=== PATIENT | female | born 1985 | race Hispanic/Latino ===

== ENCOUNTER 2022-04-28 00:23 | Emergency (ER) | payer OTHER ==
[~2022-04-28] VITALS: Ht 157.5 cm; Wt 97.5 kg
[2022-04-28 00:41] LABS: APPEARANCE,URINE Clear (CLEAR); BILIRUBIN,URINE Negative (NEGATIVE); COLOR,URINE Yellow (YELLOW); GLUCOSE, URINE (UA) Negative (NEGATIVE); KETONES,URINE Trace mg/dL (NEGATIVE); LEUKOCYTE ESTERASE ,URINE Trace (NEGATIVE); NITRATE,URINE Negative (NEGATIVE); OCCULT BLOOD,URINE Large (NEGATIVE); PROTEIN,URINE Negative (NEGATIVE)
[2022-04-28 00:45] LABS: HCG,QUAL RESULT POSITIVE (NEGATIVE)
[2022-04-28 00:50] LABS: BACTERIA,URINE Rare /HPF (None Seen); MUCUS,URINE Few LPF (None Seen); SQUAMOUS EPITHELIAL CELL,UR Few /HPF (0-2)
[2022-04-28 01:16] LABS: BASOPHILS % (AUTO) 0.2 % (0.0-5.0); EOSINOPHILS % (AUTO) 1.4 % (0.0-8.0); HEMATOCRIT 35.9 % (36-48); LYMPHOCYTES % (AUTO) 29.4 % (21.0-51.0); MEAN CORPUSCULAR HEMOGLOBIN 26.8 pg (27.0-33.0); MEAN CORPUSCULAR HGB CONC 32.9 g/dL (32.0-36.0); MEAN CORPUSCULAR VOLUME 81.6 fL (79-99); MONOCYTES % (AUTO) 6.6 % (3.0-13.0); PLATELET COUNT (AUTO) 268 K/uL (130-400); RED CELL DISTRIBUTION WIDTH 13.7 % (11.0-15.5); WHITE BLOOD COUNT (AUTO) 8.4 K/uL (4.8-10.8)
[2022-04-28 01:25] LABS: CREATININE 0.6 mg/dL (0.5-1.5); POTASSIUM 3.5 mmol/L (3.5-5.1)
[2022-04-28 01:51] LABS: ALBUMIN 3.3 g/dL (3.5-5.0); BILIRUBIN,TOTAL 0.2 mg/dL (0.2-1.0); TOTAL PROTEIN, SERUM 7.1 g/dL (6.0-8.3)
[2022-04-28 04:40] VITALS: BP 125/62
== END 2022-04-28 04:50 | disposition home or self-care (01) ==
LOC: EDH 00:23
DX: O20.0 Threatened abortion (principal); Z90.49 Acquired absence of other specified parts of digestive tract; Z3A.01 Less than 8 weeks gestation of pregnancy
CPT/HCPCS: 36415; 76801; 80053; 81001; 81025; 84702; 85025; 86850; 86900; 86901

== ENCOUNTER 2022-04-29 22:17 | Emergency (ER) | payer OTHER ==
[~2022-04-29] VITALS: Ht 157.5 cm; Wt 96.6 kg
[2022-04-29 22:56] LABS: BASOPHILS % (AUTO) 0.3 % (0.0-5.0); EOSINOPHILS % (AUTO) 1.5 % (0.0-8.0); HEMATOCRIT 37.2 % (36-48); LYMPHOCYTES % (AUTO) 25.3 % (21.0-51.0); MEAN CORPUSCULAR HEMOGLOBIN 26.6 pg (27.0-33.0); MEAN CORPUSCULAR HGB CONC 32.5 g/dL (32.0-36.0); MEAN CORPUSCULAR VOLUME 81.8 fL (79-99); MONOCYTES % (AUTO) 5.5 % (3.0-13.0); NEUTROPHILS % (AUTO) 67.1 % (40.0-77.0); PLATELET COUNT (AUTO) 269 K/uL (130-400); RED BLOOD CELL COUNT(AUTO) 4.55 MIL/uL (4.00-5.50); WHITE BLOOD COUNT (AUTO) 8.8 K/uL (4.8-10.8)
[2022-04-29 23:00] LABS: APPEARANCE,URINE Turbid (CLEAR); BILIRUBIN,URINE Small (NEGATIVE); COLOR,URINE Red (YELLOW); GLUCOSE, URINE (UA) Negative (NEGATIVE); KETONES,URINE Negative (NEGATIVE); LEUKOCYTE ESTERASE ,URINE Small (NEGATIVE); NITRATE,URINE Negative (NEGATIVE); OCCULT BLOOD,URINE Large (NEGATIVE); PH,URINE 5.5 (5.0-8.0); PROTEIN,URINE POS 2+ mg/dL (NEGATIVE)
[2022-04-29 23:10] LABS: BACTERIA,URINE Few /HPF (None Seen); RBC,URINE 51-100 /HPF (0-1); SQUAMOUS EPITHELIAL CELL,UR Rare /HPF (0-2)
[2022-04-29 23:14] LABS: CREATININE 0.6 mg/dL (0.5-1.5); POTASSIUM 3.6 mmol/L (3.5-5.1)
[2022-04-29 23:46] LABS: ALBUMIN 3.2 g/dL (3.5-5.0); BILIRUBIN,TOTAL 0.2 mg/dL (0.2-1.0); TOTAL PROTEIN, SERUM 6.9 g/dL (6.0-8.3)
[2022-04-30 00:07] VITALS: BP 113/75
== END 2022-04-30 00:13 | disposition home or self-care (01) ==
LOC: EDH 22:17
DX: O02.1 Missed abortion (principal); Z3A.01 Less than 8 weeks gestation of pregnancy; Z90.49 Acquired absence of other specified parts of digestive tract
CPT/HCPCS: 36415; 76801; 76817; 80053; 81001; 84702; 85025

== ENCOUNTER 2023-01-14 22:58 | Emergency (ER) | payer OTHER ==
[~2023-01-14] VITALS: Ht 157.5 cm; Wt 101.2 kg
[2023-01-15 00:01] LABS: APPEARANCE,URINE CLEAR (CLEAR); BILIRUBIN,URINE NEGATIVE (NEGATIVE); COLOR,URINE LIGHT-YELLOW (YELLOW); GLUCOSE, URINE (UA) NEGATIVE (NEGATIVE); KETONES,URINE NEGATIVE (NEGATIVE); LEUKOCYTE ESTERASE ,URINE NEGATIVE Leu/uL (NEGATIVE); NITRATE,URINE NEGATIVE (NEGATIVE); OCCULT BLOOD,URINE NEGATIVE (NEGATIVE); PH,URINE 6.5 (5.0-8.0); PROTEIN,URINE NEGATIVE (NEGATIVE)
[2023-01-15 00:28] LABS: CREATININE 0.6 mg/dL (0.5-1.5); POTASSIUM 3.7 mmol/L (3.5-5.1)
[2023-01-15 00:32] LABS: ALBUMIN 3.2 g/dL (3.5-5.0); TOTAL PROTEIN, SERUM 6.8 g/dL (6.0-8.3)
[2023-01-15 00:41] LABS: BASOPHILS % (AUTO) 0.1 % (0.0-5.0); EOSINOPHILS % (AUTO) 1.6 % (0.0-8.0); HEMATOCRIT 36.3 % (36-48); LYMPHOCYTES % (AUTO) 30.5 % (21.0-51.0); MEAN CORPUSCULAR HGB CONC 32.5 g/dL (32.0-36.0); MEAN CORPUSCULAR VOLUME 80.1 fL (79-99); MONOCYTES % (AUTO) 5.4 % (3.0-13.0); NEUTROPHILS % (AUTO) 62.1 % (40.0-77.0); PLATELET COUNT (AUTO) 286 K/uL (130-400); RED BLOOD CELL COUNT(AUTO) 4.53 MIL/uL (4.00-5.50); RED CELL DISTRIBUTION WIDTH 14.5 % (11.0-15.5); WHITE BLOOD COUNT (AUTO) 6.8 K/uL (4.8-10.8)
[2023-01-15 04:09] VITALS: BP 132/78
== END 2023-01-15 04:34 | disposition home or self-care (01) ==
LOC: EDH 22:58
DX: O20.0 Threatened abortion (principal); O34.81 Maternal care for other abnormalities of pelvic organs, first trimester; N83.209 Unspecified ovarian cyst, unspecified side; O26.891 Other specified pregnancy related conditions, first trimester; Z3A.01 Less than 8 weeks gestation of pregnancy; Z90.49 Acquired absence of other specified parts of digestive tract; Z98.890 Other specified postprocedural states
CPT/HCPCS: 36415; 76801; 80053; 81003; 84702; 84703; 85025; 86900; 86901

== ENCOUNTER 2023-01-29 18:04 | Emergency (ER) | payer OTHER ==
[~2023-01-29] VITALS: Ht 157.5 cm; Wt 99.8 kg
[2023-01-29 18:25] VITALS: BP 140/83
[2023-01-29 19:12] LABS: APPEARANCE,URINE CLEAR (CLEAR); BILIRUBIN,URINE NEGATIVE (NEGATIVE); COLOR,URINE YELLOW (YELLOW); GLUCOSE, URINE (UA) NEGATIVE (NEGATIVE); KETONES,URINE NEGATIVE (NEGATIVE); LEUKOCYTE ESTERASE ,URINE NEGATIVE Leu/uL (NEGATIVE); NITRATE,URINE NEGATIVE (NEGATIVE); PH,URINE 5.5 (5.0-8.0); PROTEIN,URINE NEGATIVE (NEGATIVE)
[2023-01-29 19:18] LABS: MUCUS,URINE FEW LPF (None Seen); SQUAMOUS EPITHELIAL CELL,UR FEW /HPF (0-2)
[2023-01-29 19:23] LABS: BASOPHILS % (AUTO) 0.4 % (0.0-5.0); CREATININE 0.6 mg/dL (0.5-1.5); EOSINOPHILS % (AUTO) 1.7 % (0.0-8.0); HEMATOCRIT 34.8 % (36-48); LYMPHOCYTES % (AUTO) 25.8 % (21.0-51.0); MEAN CORPUSCULAR HEMOGLOBIN 26.6 pg (27.0-33.0); MEAN CORPUSCULAR HGB CONC 33.3 g/dL (32.0-36.0); MEAN CORPUSCULAR VOLUME 79.8 fL (79-99); MONOCYTES % (AUTO) 5.8 % (3.0-13.0); NEUTROPHILS % (AUTO) 66.1 % (40.0-77.0); PLATELET COUNT (AUTO) 274 K/uL (130-400); POTASSIUM 3.3 mmol/L (3.5-5.1); RED BLOOD CELL COUNT(AUTO) 4.36 MIL/uL (4.00-5.50); RED CELL DISTRIBUTION WIDTH 14.3 % (11.0-15.5); WHITE BLOOD COUNT (AUTO) 8.3 K/uL (4.8-10.8)
[2023-01-29 19:25] LABS: ALBUMIN 3.2 g/dL (3.5-5.0); TOTAL PROTEIN, SERUM 6.8 g/dL (6.0-8.3)
== END 2023-01-29 22:28 | disposition home or self-care (01) ==
LOC: EDH 18:04
DX: O20.0 Threatened abortion (principal); Z3A.08 8 weeks gestation of pregnancy; Z90.710 Acquired absence of both cervix and uterus; Z98.890 Other specified postprocedural states
CPT/HCPCS: 36415; 76801; 80053; 81001; 84702; 84703; 85025

== ENCOUNTER 2023-03-12 16:50 | Emergency (ER) | payer OTHER ==
[~2023-03-12] VITALS: Ht 160 cm; Wt 99.8 kg
[2023-03-12] MEDS ORDERED: HYDROCODONE/ACETAMINOPHEN 5/325 MG TAB PO ONE (18:00)
[2023-03-12] MEDS ORDERED: KETOROLAC 60 MG VIAL (30MG/ML) IM ONE (18:00)
[2023-03-12] MEDS ORDERED: IBUP-2070 PO (19:46)
[2023-03-12] MEDS ORDERED: METH4TAB3 PO (19:46)
[2023-03-12] MEDS ORDERED: CYCL5TAB PO (19:46)
[2023-03-12 20:07] VITALS: BP 134/61
== END 2023-03-12 20:11 | disposition home or self-care (01) ==
LOC: EDH 16:50
DX: S46.912A Strain of unspecified muscle, fascia and tendon at shoulder and upper arm level, left arm, initial encounter (principal); S16.1XXA Strain of muscle, fascia and tendon at neck level, initial encounter; M54.12 Radiculopathy, cervical region; R20.2 Paresthesia of skin; Z90.49 Acquired absence of other specified parts of digestive tract; X58.XXXA Exposure to other specified factors, initial encounter; Y93.89 Activity, other specified; Y92.89 Other specified places as the place of occurrence of the external cause; Y99.8 Other external cause status
CPT/HCPCS: 99285; 70450; 81025; 73030; 72125; 72128; 96372; J1885

== ENCOUNTER 2024-12-07 20:04 | Emergency (ER) | payer BC ==
[~2024-12-07] VITALS: Ht 157.5 cm; Wt 103.4 kg
[~2024-12-07 20:04] MED LIST: CYCL5TAB3 PO; IBUP-2070 PO; METH4TAB3 PO
--- NOTE | 2024-12-07 20:24 | ERN ---
ED Note History of Present Illness Stated Complaint: ABDOMINAL PAIN,VOMITTING,MULTIPLE COMPLAINTS Chief Complaint: Abdominal Pain Time Seen by MD: 20:06 Time Seen by Midlevel: 20:06 Dictation: The patient is a 39-year-old female with past medical history of , appendectomy who presents to the emergency department with complaints of suprapubic abdominal pain associated with nausea nonbloody diarrhea onset last night. Patient denies any fevers, constipation, urinary incontinence. Reports she took a test four days ago and was positive. Denies any vaginal bleeding or discharge. Allergies: Coded Allergies: No Known Drug Allergies (Unverified Allergy, Unknown, 04/28/22) Home Meds Active Scripts Cyclobenzaprine HCl (Cyclobenzaprine HCl) 5 Mg Tablet, 5 MG PO DAILYDINNER for 5 Days, #5 TAB Prov:RADHA AZUL 03/12/23 Methylprednisolone (Medrol) 4 Mg Tab.ds.pk, 4 MG PO AD for 5 Days, #1 PACK Prov:RADHA AZUL 03/12/23 Ibuprofen (Ibuprofen) 600 Mg Tablet, 600 MG PO Q6H PRN for PAIN, #15 TAB Prov:RADHA AZUL 03/12/23 Past Medical History Past Medical History: No Pertinent History Surgical History: Appendectomy, Social History: Negative LMP: Oct 02, 2024 : 7 Para: 4 Aborts: 3 RN Note Reviewed/Agreed w/PFSH: Yes Review of System Dictation Constitutional: Negative for fever,chills, and weight loss Eyes: Negative for injury, pain,redness, and discharge ENT: Negative for injury,pain or swelling Cardiovascular: Negative for chest pain, palpitations, and edema Respiratory: Negative for shortness of breath, cough, and wheezing, Abdomen/GI: Negative for , vomiting, , and constipation positive for abdominal pain, nausea, diarrhea Back: Negative for injury and pain : Negative for injury, bleeding and discharge MS/Extremity: Negative for injury and deformity Skin: Negative for rash, and discoloration Neuro: Negative for headache, weakness, numbness, tingling, and seizure Psych: Negative for suicide ideation, homicidal ideation, and hallucinations Initial Vital Sign VS Vital Signs Date Time Temp Pulse Resp B/P (MAP) Pulse Ox O2 Delivery O2 Flow Rate FiO2 1/20/25 20:09 98.2 98 20 131/76 100 Room Air 12/07/24 22:22 0 21 Physical Exam Dictation Vital Signs reviewed General Appearance: Alert, oriented x 3, no acute distress, well developed, nourished. Head and Face: non-traumatic. Eyes: PERRL, pink conjunctivas, eyelid no trauma, anterior chamber with arcus senilis. Ears: Pinnas intact and no signs of trauma or erythema ear canals clear and no discharge TM no erythema Nose: No discharge, no bleeding. Oropharynx: Mouth normal, tongue pink. pharynx clear,no erythema, tonsils no exudates, no abscesses noted, mucous membrane moist Neck: Supple, non-tender, no thyromegaly, no masses, no JVD, no bruits Breast:Deferred Chest:No tenderness, no crepitus, no paradoxical movement, no retractions Lungs:Clear, well-ventilated, symmetric, no rales, no wheezing, no rhonchi, no stridor, good breath sounds bilaterally Heart: Regular rate, regular rhythm, no murmur, no gallops Vascular: no peripheral edema, Abdomen: Soft, positive bowel sounds, nondistended, no guarding, nontender, no rebound, no masses no hepatomegaly, no splenomegaly, no Carl's sign, no hernias. Rectal: Deferred Genital: Deferred Neurological: Normal speech, motor function intact, sensory function intact Musculoskeletal: Neck nontender, full range of motion, back nontender, full range of motion, Extremities: nontender, full range of motion Skin: Color pink, dry, no turgor, no rash, no lacerations, no abrasions, no contusions. Lymphatic: Deferred Results (Laboratory/Radiology) Laboratory/Radiology Laboratory Tests Test 12/07/24 20:14 12/07/24 20:32 Urine Color LIGHT-YELLOW (YELLOW) Urine Appearance CLEAR (CLEAR) Urine pH 7.5 (5.0-8.0) Urine Specific [place] 1.029 (1.001-1.031) Urine Protein NEGATIVE mg/dL (NEGATIVE) Urine Glucose (UA) NEGATIVE mg/dL (NEGATIVE) Urine Ketones NEGATIVE mg/dL (NEGATIVE) Urine Occult Blood NEGATIVE (NEGATIVE) Urine Nitrate NEGATIVE (NEGATIVE) Urine Bilirubin NEGATIVE mg/dL (NEGATIVE) Urine Urobilinogen 2.0 mg/dL (0.2-1.0) H Urine Leukocyte Esterase NEGATIVE Leon/uL Urine RBC 0-1 /HPF (0-1) Urine WBC 0-1 /HPF (0-1) Urine Squamous Epithelial Cells FEW /HPF (0-2) Urine Bacteria RARE /HPF (None Seen) Urine HCG, Qualitative POSITIVE (NEGATIVE) H White Blood Count 8.4 K/uL (4.8-10.8) Red Blood Count 4.64 MIL/uL (4.00-5.50) Hemoglobin 12.2 g/dL (12.0-16.0) Hematocrit 37.5 % (36-48) Mean Corpuscular Volume 80.8 fL (79-99) Mean Corpuscular Hemoglobin 26.3 pg (27.0-33.0) L Mean Corpuscular Hemoglobin Concent 32.5 g/dL (32.0-36.0) Red Cell Distribution Width 14.6 % (11.0-15.5) Platelet Count 316 K/uL (130-400) Mean Platelet Volume 10.4 fL (7.5-10.5) Immature Granulocyte % (Auto) 0.4 % (0-1) Neutrophils (%) (Auto) 65.7 % (40.0-77.0) Lymphocytes (%) (Auto) 26.7 % (21.0-51.0) Monocytes (%) (Auto) 6.0 % (3.0-13.0) Eosinophils (%) (Auto) 1.0 % (0.0-8.0) Basophils (%) (Auto) 0.2 % (0.0-5.0) Neutrophils # (Auto) 5.5 K/uL (1.8-7.7) Lymphocytes # (Auto) 2.2 K/uL (1.0-4.8) Monocytes # (Auto) 0.5 K/uL (0.1-1.0) Eosinophils # (Auto) 0.08 K/uL (0.00-0.70) Basophils # (Auto) 0.02 K/uL (0.00-0.20) Absolute Immature Granulocyte (auto 0.03 K/uL (0-1) Nucleated Red Blood Cells 0.0 % (0.0-0.19) Sodium Level 138 mmol/L (136-145) Potassium Level 4.1 mmol/L (3.5-5.1) Chloride Level 102 mmol/L (101-111) Carbon Dioxide Level 29 mmol/L (21-32) Blood Urea Nitrogen 13 mg/dL (7-18) Creatinine 0.3 mg/dL (0.5-1.0) L Glomerular Filtration Rate Calc 137 mL/min (>90) Random Glucose 78 mg/dL (70-105) Total Calcium 8.6 mg/dL (8.5-10.1) Lipase 39 U/L (16-77) Human Chorionic Gonadotropin, Quant 629 mIU/mL (0-5) H REASON: VAGINAL BLEEDING ORDERING PHYSICIAN: ERIKA BRUNO PROCEDURE: OB <14 - US OB <14 WEEKS US OB <14 WEEKS HISTORY: VAGINAL BLEEDING COMPARISON: None FINDINGS: Uterus measures 11.4 cm in length and there is a 5.8 cm myometrial fibroid. The endometrial thickness measures 1.4 cm. The ovaries are unremarkable in size and echogenicity. There is no identified intrauterine gestation, adnexal mass or free fluid. IMPRESSION: There is no identified intrauterine gestation in this female with a positive test. Note is made of a uterine fibroid. Labs Reviewed?: Yes ED Course ED Course Orders Procedure Category Date Status Time Vital Signs Per CPOE 12/07/24 Transmitted Routine 20:13 Saline Lock Iv CPOE 12/07/24 Transmitted 20:13 Cbc With Differential LAB 12/07/24 Complete 20:13 Lipase LAB 12/07/24 Complete 20:13 Urinalysis Profile LAB 12/07/24 Complete 20:13 Basic Metabolic Panel LAB 12/07/24 Complete 20:13 ,Urine Test LAB 12/07/24 Complete 20:13 0.9%Nacl 1000ml (Ns PHA 12/07/24 Complete 1000ml) 20:30 Morphine 4mg Syg PHA 12/07/24 Complete (Morphine 4mg Syg) 20:30 Ondansetron 4mg Inj PHA 12/07/24 Complete (Zofran 4mg Inj) 20:30 Us Ob <14 Weeks US 12/07/24 Resulted 20:37 Acetaminophen 500mg PHA 12/07/24 Complete Tab (Tylenol 500mg T 21:00 Hcg,Quantitative LAB 12/07/24 Complete 20:37 Current Medications Medications (Trade) Dose Ordered Sig/Justin Route PRN Reason Start Time Stop Time Status Last Admin Dose Admin Acetaminophen (TYLenol 500MG TAB) 1,000 mg ONCE ONCE PO 12/07/24 21:00 12/07/24 21:01 DC 12/07/24 20:46 Morphine Sulfate (morPHINE 4MG SYG) 4 mg ONCE ONCE IVP 12/07/24 20:30 12/07/24 20:39 DC Ondansetron HCl (zoFRAN 4MG INJ) 4 mg ONCE ONCE IVP 12/07/24 20:30 12/07/24 20:31 DC 12/07/24 20:37 Sodium Chloride 1,000 ml @ 0 mls/hr ONCE ONCE IV 12/07/24 20:30 12/07/24 20:31 DC 12/07/24 20:37 Vital Signs Date Time Temp Pulse Resp B/P (MAP) Pulse Ox O2 Delivery O2 Flow Rate FiO2 12/07/24 22:22 98.4 75 18 126/65 99 Room Air* 0 21 12/07/24 20:09 98.2 98 20 131/76 100 Room Air Medical Decision Making [facility] The patient is a 39-year-old female with past medical history of , appendectomy who presents to the emergency department with complaints of suprapubic abdominal pain associated with nausea nonbloody diarrhea onset last night. Patient denies any fevers, constipation, urinary incontinence. Reports she took a test four days ago and was positive. Denies any vaginal bleeding or discharge. CBC showed no leukocytosis, no anemia, chemistry showed no electrolyte imbalance, hCG level of 629, ultrasound revealed no intrauterine . Uterine fibroid. Patient continues in no distress, nontoxic appearance. No vaginal bleeding instructed to follow up with OBGYN. Differential diagnosis: Gastroenteritis, gastritis, , ectopic , UTI Need for hospitalization: Patient does not meet criteria for hospitalization. There are no social concerns with this patient. DX & DISP Disposition: Discharge Departure Impression: Primary Impression: Suprapubic abdominal pain Additional Impressions: Positive test, Uterine fibroid Condition: Stable Additional Instructions: Please follow up with your OBGYN as soon as possible. Please return to ER if symptoms worsen. FOLLOW-UP WITH PRIMARY CARE PROVIDER IN 1 TO 2 DAYS. TAKE MEDICATIONS DIRECTED HERE IN THE EMERGENCY ROOM. OKAY TO CONTINUE HOME MEDICATIONS UNLESS OTHERWISE DISCUSSED DURING YOUR VISIT IN THE EMERGENCY ROOM TODAY. RETURN TO YOUR NEAREST EMERGENCY ROOM IF SYMPTOMS WORSEN OR IF THERE IS NO IMPROVEMENT. CALL 911 IF YOU NEED IMMEDIATE ASSISTANCE. TAKE TYLENOL [id number] NEEDED AND IF NO CONTRAINDICATIONS ARE PRESENT. INCREASE ORAL HYDRATION. A WO UND CULTURE OR URINE CULTURE WAS ORDERED HERE IN THE EMERGENCY ROOM DEPARTMENT PLEASE FOLLOW-UP WITH PRIMARY CARE PROVIDER AND ADVISE THEM TO GET REPEAT PORTS FROM OUR FACILITY. IF YOU HAD ANY DIANA WRAP/SPLINTS THAT WERE APPLIED HERE, PLEASE DO NOT REMOVE THEM UNTIL YOU SEE YOUR PRIMARY CARE OR SPECIALTY. Referrals: SELF,REFERRAL (PCP) Time of Disposition: 22:02 I have reviewed the case, and I agree with, Diagnosis and Plan ERIKA BRUNO Dec 07, 2024 20:24 LACEY MEYER DO Dec 08, 2024 03:39
[2024-12-07 20:26] LABS: APPEARANCE,URINE CLEAR (CLEAR); BILIRUBIN,URINE NEGATIVE (NEGATIVE); COLOR,URINE LIGHT-YELLOW (YELLOW); GLUCOSE, URINE (UA) NEGATIVE (NEGATIVE); KETONES,URINE NEGATIVE (NEGATIVE); LEUKOCYTE ESTERASE ,URINE NEGATIVE Leu/uL (NEGATIVE); NITRATE,URINE NEGATIVE (NEGATIVE); OCCULT BLOOD,URINE NEGATIVE (NEGATIVE); PH,URINE 7.5 (5.0-8.0); PROTEIN,URINE NEGATIVE (NEGATIVE)
[2024-12-07 20:33] LABS: ADD UA MICROSCOPIC YES
[2024-12-07] MEDS: morPHINE 4 MG SYG IVP ONE (20:37)
[2024-12-07] MEDS: ondanSETRON 4MG INJ IVP ONE (20:37)
[2024-12-07] MEDS: 0.9%NACL 1000ML 1,000 ML IV ONE (20:37)
[2024-12-07 20:42] LABS: BACTERIA,URINE RARE /HPF (None Seen); RBC,URINE 0-1 /HPF (0-1); SQUAMOUS EPITHELIAL CELL,UR FEW /HPF (0-2); WBC,URINE 0-1 /HPF (0-1)
[2024-12-07 20:43] LABS: BASOPHILS # (AUTO) 0.02 K/uL (0.00-0.20); BASOPHILS % (AUTO) 0.2 % (0.0-5.0); EOSINOPHILS # (AUTO) 0.08 K/uL (0.00-0.70); HEMATOCRIT 37.5 % (36-48); IMMATURE GRANULOCYTE ABSOLUTE 0.03 K/uL (0-1); LYMPHOCYTES # (AUTO) 2.2 K/uL (1.0-4.8); LYMPHOCYTES % (AUTO) 26.7 % (21.0-51.0); MEAN CORPUSCULAR HEMOGLOBIN 26.3 pg (27.0-33.0); MEAN CORPUSCULAR HGB CONC 32.5 g/dL (32.0-36.0); MEAN CORPUSCULAR VOLUME 80.8 fL (79-99); MONOCYTES # (AUTO) 0.5 K/uL (0.1-1.0); NEUTROPHILS # (AUTO) 5.5 K/uL (1.8-7.7); NEUTROPHILS % (AUTO) 65.7 % (40.0-77.0); PLATELET COUNT (AUTO) 316 K/uL (130-400); RED BLOOD CELL COUNT(AUTO) 4.64 MIL/uL (4.00-5.50); RED CELL DISTRIBUTION WIDTH 14.6 % (11.0-15.5); WHITE BLOOD COUNT (AUTO) 8.4 K/uL (4.8-10.8)
[2024-12-07] MEDS: acetaMINOPHEN 500 MG TABLET PO ONE (20:46)
[2024-12-07 21:07] LABS: CREATININE 0.3 mg/dL (0.5-1.0); POTASSIUM 4.1 mmol/L (3.5-5.1)
--- NOTE | 2024-12-07 21:19 | HMCIMG ---
US OB <14 WEEKS HISTORY: VAGINAL BLEEDING COMPARISON: None FINDINGS: Uterus measures 11.4 cm in length and there is a 5.8 cm myometrial fibroid. The endometrial thickness measures 1.4 cm. The ovaries are unremarkable in size and echogenicity. There is no identified intrauterine gestation, adnexal mass or free fluid. IMPRESSION: There is no identified intrauterine gestation in this female with a positive test. Note is made of a uterine fibroid.
--- NOTE | 2024-12-07 21:40 | NUR ---
WASTED MORPHINE IV- NOT GIVEN
[2024-12-07 22:22] VITALS: BP 126/65; PULSE 75; RESP 18; TEMP 98.5; O2SAT 99
== END 2024-12-07 22:20 | disposition home or self-care (01) ==
LOC: EDH 20:04
DX: O26.891 Other specified pregnancy related conditions, first trimester (principal); R10.2 Pelvic and perineal pain; D25.9 Leiomyoma of uterus, unspecified; Z90.49 Acquired absence of other specified parts of digestive tract
CPT/HCPCS: 99284; 96374; 76801; 96361; 80048; 84702; 83690; 85025; 81001; 81025; 36415; J7030; J2405; J2270

== ENCOUNTER 2024-12-14 20:36 | Emergency (ER) | payer BC ==
[~2024-12-14] VITALS: Ht 152.4 cm; Wt 102.1 kg
--- NOTE | 2024-12-14 21:17 | HMCIMG ---
US OB <14 WEEKS HISTORY: VAGINAL BLEEDING TECHNIQUE: Real-time pelvic ultrasound was performed. FINDINGS: Uterus measures 11.9 cm. There is a fibroid measuring 5.4 cm with gestational sac measures 0.6 cm. No heart rate or pole is identified. No yolk sac is seen suggesting early gestation. Right ovary measures 2.6 x 2.7 cm and left ovary measures 1.8 x 2.4 cm. IMPRESSION: Gestational sac is seen suggesting early gestation. Correlation with serial hCG and ultrasound recommended.
--- NOTE | 2024-12-14 21:20 | ERN ---
ED Note History of Present Illness Stated Complaint: 4WKS , PELVIC PAIN, CRAMPING Chief Complaint: OB<20 weeks gest. Time Seen by MD: 20:38 Time Seen by Midlevel: 20:38 Dictation: The patient is a 39-year-old female with past medical history of , appendectomy who presents to the emergency department with complaints of suprapubic abdominal pain radiating to the back associated with vaginal spotting onset today. Patient denies saturating any pads. Reports . Patient denies any fevers, constipation, urinary incontinence. Allergies: Coded Allergies: No Known Drug Allergies (Unverified Allergy, Unknown, 04/28/22) Home Meds Active Scripts Cyclobenzaprine HCl (Cyclobenzaprine HCl) 5 Mg Tablet, 5 MG PO DAILYDINNER for 5 Days, #5 TAB Prov:RADHA AZUL 03/12/23 Methylprednisolone (Medrol) 4 Mg Tab.ds.pk, 4 MG PO AD for 5 Days, #1 PACK Prov:RADHA AZUL 03/12/23 Ibuprofen (Ibuprofen) 600 Mg Tablet, 600 MG PO Q6H PRN for PAIN, #15 TAB Prov:RADHA AZUL 03/12/23 Past Medical History Past Medical History: No Pertinent History Surgical History: Appendectomy, Social History: Negative : 7 Para: 4 Aborts: 3 Review of System Dictation Constitutional: Negative for fever,chills, and weight loss Eyes: Negative for injury, pain,redness, and discharge ENT: Negative for injury,pain or swelling Cardiovascular: Negative for chest pain, palpitations, and edema Respiratory: Negative for shortness of breath, cough, and wheezing, Abdomen/GI: Negative for nausea, vomiting, diarrhea, and constipation for abdominal pain Back: Negative for injury and pain : Negative for injury, and discharge positive for vaginal bleeding MS/Extremity: Negative for injury and deformity Skin: Negative for rash, and discoloration Neuro: Negative for headache, weakness, numbness, tingling, and seizure Psych: Negative for suicide ideation, homicidal ideation, and hallucinations Initial Vital Sign VS Vital Signs Date Time Temp Pulse Resp B/P (MAP) Pulse Ox O2 Delivery O2 Flow Rate FiO2 12/14/24 21:17 98.2 87 20 131/73 100 Room Air 12/14/24 22:31 0 21 Physical Exam Dictation Vital Signs reviewed General Appearance: Alert, oriented x 3, no acute distress, well developed, nourished. Head and Face: non-traumatic. Eyes: PERRL, pink conjunctivas, eyelid no trauma, anterior chamber with arcus senilis. Ears: Pinnas intact and no signs of trauma or erythema ear canals clear and no discharge TM no erythema Nose: No discharge, no bleeding. Oropharynx: Mouth normal, tongue pink. pharynx clear,no erythema, tonsils no exudates, no abscesses noted, mucous membrane moist Neck: Supple, non-tender, no thyromegaly, no masses, no JVD, no bruits Breast:Deferred Chest:No tenderness, no crepitus, no paradoxical movement, no retractions Lungs:Clear, well-ventilated, symmetric, no rales, no wheezing, no rhonchi, no stridor, good breath sounds bilaterally Heart: Regular rate, regular rhythm, no murmur, no gallops Vascular: no peripheral edema, Abdomen: Soft, positive bowel sounds, nondistended, no guarding, nontender, no rebound, no masses no hepatomegaly, no splenomegaly, no Carl's sign, no hernias. Rectal: Deferred Genital: Deferred Neurological: Normal speech, motor function intact, sensory function intact Musculoskeletal: Neck nontender, full range of motion, back nontender, full range of motion, Extremities: nontender, full range of motion Skin: Color pink, dry, no turgor, no rash, no lacerations, no abrasions, no contusions. Lymphatic: Deferred Results (Laboratory/Radiology) Laboratory/Radiology Laboratory Tests Test 12/14/24 21:20 12/14/24 22:32 Urine Color LIGHT-YELLOW (YELLOW) Urine Appearance CLEAR (CLEAR) Urine pH 6.0 (5.0-8.0) Urine Specific [place] 1.026 (1.001-1.031) Urine Protein NEGATIVE mg/dL (NEGATIVE) Urine Glucose (UA) NEGATIVE mg/dL (NEGATIVE) Urine Ketones NEGATIVE mg/dL (NEGATIVE) Urine Occult Blood NEGATIVE (NEGATIVE) Urine Nitrate NEGATIVE (NEGATIVE) Urine Bilirubin NEGATIVE mg/dL (NEGATIVE) Urine Urobilinogen 2.0 mg/dL (0.2-1.0) H Urine Leukocyte Esterase NEGATIVE Leon/uL White Blood Count 8.8 K/uL (4.8-10.8) Red Blood Count 4.71 MIL/uL (4.00-5.50) Hemoglobin 12.3 g/dL (12.0-16.0) Hematocrit 38.0 % (36-48) Mean Corpuscular Volume 80.7 fL (79-99) Mean Corpuscular Hemoglobin 26.1 pg (27.0-33.0) L Mean Corpuscular Hemoglobin Concent 32.4 g/dL (32.0-36.0) Red Cell Distribution Width 14.6 % (11.0-15.5) Platelet Count 307 K/uL (130-400) Mean Platelet Volume 10.5 fL (7.5-10.5) Immature Granulocyte % (Auto) 0.5 % (0-1) Neutrophils (%) (Auto) 64.2 % (40.0-77.0) Lymphocytes (%) (Auto) 26.1 % (21.0-51.0) Monocytes (%) (Auto) 7.7 % (3.0-13.0) Eosinophils (%) (Auto) 1.2 % (0.0-8.0) Basophils (%) (Auto) 0.3 % (0.0-5.0) Neutrophils # (Auto) 5.7 K/uL (1.8-7.7) Lymphocytes # (Auto) 2.3 K/uL (1.0-4.8) Monocytes # (Auto) 0.7 K/uL (0.1-1.0) Eosinophils # (Auto) 0.11 K/uL (0.00-0.70) Basophils # (Auto) 0.03 K/uL (0.00-0.20) Absolute Immature Granulocyte (auto 0.04 K/uL (0-1) Nucleated Red Blood Cells 0.0 % (0.0-0.19) Sodium Level 135 mmol/L (136-145) L Potassium Level 3.7 mmol/L (3.5-5.1) Chloride Level 101 mmol/L (101-111) Carbon Dioxide Level 30 mmol/L (21-32) Blood Urea Nitrogen 12 mg/dL (7-18) Creatinine 0.5 mg/dL (0.5-1.0) Glomerular Filtration Rate Calc 122 mL/min (>90) Random Glucose 96 mg/dL (70-105) Total Calcium 8.9 mg/dL (8.5-10.1) Human Chorionic Gonadotropin, Quant 3512 mIU/mL (0-5) H REASON: VAGINAL BLEEDING ORDERING PHYSICIAN: ERIKA BRUNO PROCEDURE: OB <14 - US OB <14 WEEKS US OB <14 WEEKS HISTORY: VAGINAL BLEEDING TECHNIQUE: Real-time pelvic ultrasound was performed. FINDINGS: Uterus measures 11.9 cm. There is a fibroid measuring 5.4 cm with gestational sac measures 0.6 cm. No heart rate or pole is identified. No yolk sac is seen suggesting early gestation. Right ovary measures 2.6 x 2.7 cm and left ovary measures 1.8 x 2.4 cm. IMPRESSION: Gestational sac is seen suggesting early gestation. Correlation with serial hCG and ultrasound recommended. Labs Reviewed?: Yes ED Course ED Course Orders Procedure Category Date Status Time Cbc With Differential LAB 12/14/24 Complete 20:48 Hcg,Quantitative LAB 12/14/24 Complete 20:48 Us Ob <14 Weeks US 12/14/24 Resulted 20:48 0.9%Nacl 1000ml (Ns PHA 12/14/24 Complete 1000ml) 21:00 Basic Metabolic Panel LAB 12/14/24 Complete 20:48 Urinalysis Profile LAB 12/14/24 Complete 20:48 Acetaminophen 500mg PHA 12/14/24 Complete Tab (Tylenol 500mg T 21:00 Current Medications Medications (Trade) Dose Ordered Sig/Justin Route PRN Reason Start Time Stop Time Status Last Admin Dose Admin Acetaminophen (TYLenol 500MG TAB) 1,000 mg ONCE ONCE PO 12/14/24 21:00 12/14/24 21:01 DC 12/14/24 22:45 Sodium Chloride 1,000 ml @ 0 mls/hr ONCE ONCE IV 12/14/24 21:00 12/14/24 21:01 DC 12/14/24 22:45 Vital Signs Date Time Temp Pulse Resp B/P (MAP) Pulse Ox O2 Delivery O2 Flow Rate FiO2 12/14/24 22:31 98.2 87 20 131/73 100 Room Air* 0 21 12/14/24 21:17 98.2 87 20 131/73 100 Room Air Medical Decision Making MDM The patient is a 39-year-old female with past medical history of , appendectomy who presents to the emergency department with complaints of suprapubic abdominal pain radiating to the back associated with vaginal spotting onset today. Patient denies saturating any pads. Reports . Patient denies any fevers, constipation, urinary incontinence. CBC showed no leukocytosis no anemia, chemistry showed no electrolyte imbalance, hCG increased to 3512, urinalysis unremarkable. Ultrasound revealed gestational sac suggesting early gestation. Patient with a very minimal spotting. In no acute distress. Instructed to follow up with PCP in OBGYN as soon as possible. Labs and imaging discussed with the patient who agrees to follow up. Differential diagnosis: , UTI, dehydration, gastroenteritis Need for hospitalization: Patient does not meet criteria for hospitalization. There are no social concerns with this patient. DX & DISP Disposition: Discharge Departure Impression: Primary Impression: Suprapubic abdominal pain Additional Impressions: Positive test, Uterine fibroid Condition: Stable Additional Instructions: Please follow up with the OBGYN as soon as possible. If symptoms worsen please return to ER. FOLLOW-UP WITH PRIMARY CARE PROVIDER IN 1 TO 2 DAYS. TAKE MEDICATIONS DIRECTED HERE IN THE EMERGENCY ROOM. OKAY TO CONTINUE HOME MEDICATIONS UNLESS OTHERWISE DISCUSSED DURING YOUR VISIT IN THE EMERGENCY ROOM TODAY. RETURN TO YOUR NEAREST EMERGENCY ROOM IF SYMPTOMS WORSEN OR IF THERE IS NO IMPROVEMENT. CALL 911 IF YOU NEED IMMEDIATE ASSISTANCE. TAKE TYLENOL [id number] NEEDED AND IF NO CONTRAINDICATIONS ARE PRESENT. INCREASE ORAL HYDRATION. A WOUND CULTURE OR URINE CULTURE WAS ORDERED HERE IN THE EMERGENCY ROOM DEPARTMENT PLEASE FOLLOW-UP WITH PRIMARY CARE PROVIDER AND ADVISE THEM TO GET REPEAT PORTS FROM OUR FACILITY. IF YOU HAD ANY DIANA WRAP/SPLINTS THAT WERE APPLIED HERE, PLEA SE DO NOT REMOVE THEM UNTIL YOU SEE YOUR PRIMARY CARE OR SPECIALTY. Referrals: BRODIE SOTO MD (PCP) Time of Disposition: 00:03 I have reviewed the case, and I agree with, Diagnosis and Plan ERIKA BRUNO Dec 14, 2024 21:20
[2024-12-14 21:35] LABS: ADD UA MICROSCOPIC NO; APPEARANCE,URINE CLEAR (CLEAR); BILIRUBIN,URINE NEGATIVE (NEGATIVE); COLOR,URINE LIGHT-YELLOW (YELLOW); GLUCOSE, URINE (UA) NEGATIVE (NEGATIVE); KETONES,URINE NEGATIVE (NEGATIVE); LEUKOCYTE ESTERASE ,URINE NEGATIVE Leu/uL (NEGATIVE); NITRATE,URINE NEGATIVE (NEGATIVE); OCCULT BLOOD,URINE NEGATIVE (NEGATIVE); PROTEIN,URINE NEGATIVE (NEGATIVE)
[2024-12-14 22:31] VITALS: BP 131/73; PULSE 87; RESP 20; TEMP 98.3; O2SAT 100
[2024-12-14] MEDS: acetaMINOPHEN 500 MG TABLET PO ONE (22:45)
[2024-12-14] MEDS: 0.9%NACL 1000ML 1,000 ML IV ONE (22:45)
[2024-12-14 22:54] LABS: BASOPHILS # (AUTO) 0.03 K/uL (0.00-0.20); BASOPHILS % (AUTO) 0.3 % (0.0-5.0); EOSINOPHILS # (AUTO) 0.11 K/uL (0.00-0.70); EOSINOPHILS % (AUTO) 1.2 % (0.0-8.0); IMMATURE GRANULOCYTE ABSOLUTE 0.04 K/uL (0-1); LYMPHOCYTES # (AUTO) 2.3 K/uL (1.0-4.8); LYMPHOCYTES % (AUTO) 26.1 % (21.0-51.0); MEAN CORPUSCULAR HEMOGLOBIN 26.1 pg (27.0-33.0); MEAN CORPUSCULAR HGB CONC 32.4 g/dL (32.0-36.0); MEAN CORPUSCULAR VOLUME 80.7 fL (79-99); MONOCYTES # (AUTO) 0.7 K/uL (0.1-1.0); MONOCYTES % (AUTO) 7.7 % (3.0-13.0); NEUTROPHILS # (AUTO) 5.7 K/uL (1.8-7.7); NEUTROPHILS % (AUTO) 64.2 % (40.0-77.0); PLATELET COUNT (AUTO) 307 K/uL (130-400); RED BLOOD CELL COUNT(AUTO) 4.71 MIL/uL (4.00-5.50); RED CELL DISTRIBUTION WIDTH 14.6 % (11.0-15.5); WHITE BLOOD COUNT (AUTO) 8.8 K/uL (4.8-10.8)
[2024-12-14 23:13] LABS: CREATININE 0.5 mg/dL (0.5-1.0); POTASSIUM 3.7 mmol/L (3.5-5.1)
== END 2024-12-15 00:23 | disposition home or self-care (01) ==
LOC: EDH 20:36
DX: O34.11 Maternal care for benign tumor of corpus uteri, first trimester (principal); D25.9 Leiomyoma of uterus, unspecified; Z3A.01 Less than 8 weeks gestation of pregnancy; Z79.899 Other long term (current) drug therapy; Z90.49 Acquired absence of other specified parts of digestive tract; Z98.890 Other specified postprocedural states
CPT/HCPCS: 99284; 96360; 76801; 80048; 84702; 85025; 81003; 36415; J7030

== ENCOUNTER 2025-02-15 19:38 | Emergency (ER) | payer BC ==
[~2025-02-15] VITALS: Ht 157.5 cm; Wt 95.3 kg
--- NOTE | 2025-02-15 20:04 | ERN ---
General Chief Complaint: Chest Pain Stated Complaint: CHEST PAIN Time Seen by MD: 19:43 Source: patient History of Present Illness Initial Comments Patient is a 39-year-old female coming in to be evaluated for left-sided chest pain. Per patient the pain began yesterday. She also states that she has been handling this pain all day and she has a 12 hour shift which she states c ontributed to the pain getting worse. She states that the pain is reproducible on palpation. Allergies: Coded Allergies: No Known Drug Allergies (Unverified Allergy, Unknown, 04/28/22) Home Meds Active Scripts Cyclobenzaprine HCl (Cyclobenzaprine HCl) 5 Mg Tablet, 5 MG PO DAILYDINNER for 5 Days, #5 TAB Prov:RADHA AZUL 03/12/23 Methylprednisolone (Medrol) 4 Mg Tab.ds.pk, 4 MG PO AD for 5 Days, #1 PACK Prov:RADHA AZUL 03/12/23 Ibuprofen (Ibuprofen) 600 Mg Tablet, 600 MG PO Q6H PRN for PAIN, #15 TAB Prov:RADHA AZUL 03/12/23 Past Medical History Past Medical History: No Pertinent History Past Surgical History: None, Unknown Social History Social History: Negative Female( History) : 6 Para: 4 Aborts: 1 ROS Dictation CONSTITUTIONAL: No chills, no fever, no weakness, no diaphoresis, no malaise. HEAD/FACE: No signs of trauma. EENT: No eye pain, no blurred vision, no tearing, no double vision, no ear pain, no ear discharge, no nose pain, no nasal congestion, no throat pain, no throat swelling, no mouth pain. RESPIRATORY: No cough, no orthopnea, no SOB, no stridor, no wheezing. CARDIOVASCULAR: No chest pain, no edema, no palpitations, no syncope. GASTROINTESTINAL/ABDOMINAL: No abdominal pain, no constipation, no diarrhea, no nausea, no vomiting. GENITOURINARY: No abnormal discharge, no dysuria, no frequent urination, no hematuria. No complaints of pain in the genitals. MUSCULOSKELETAL: No back pain, no gout, no joint pain, no joint swelling, no muscle pain, no muscle stiffness, no neck pain. INTEGUMENTARY: No change in color, no change in hair/nails, no dryness, no lesion, no lumps, no rash. NEUROLOGICAL/PSYCH: No anxiety, not depressed, no emotional problem, no headache, no numbness, no pre-existing deficit, no history of seizures, no tremors, no weakness. HEMATOLOGIC/LYMPHATIC: Not anemic, no history of blood clots, no apparent bleeding, no bruising, glands not swollen. All Systems Negative, Except as Noted. Physical Exam Physical Exam Dictation VITAL SIGNS: Reviewed. GENERAL APPEARANCE: Alert, oriented x3, no acute distress, obese. HEAD AND FACE: Non-traumatic. EYES: PERRL, pink conjunctivas, eyelid no trauma, anterior chamber clear. EARS: Pinnas intact and no signs of trauma or erythema. Ear canals clear and no discharge. TMs no erythema. NOSE: No discharge, no bleeding. OROPHARYNX: Mouth normal, teeth no caries, tongue pink. Pharynx clear, no erythema. Tonsils no exudates, no abscesses noted. Mucous membrane moist. NECK: Supple, non-tender, no thyromegaly, no masses, no JVD, no bruits. BREAST: Deferred. CHEST: Left-sided tenderness, no crepitus, no paradoxical movement, no retractions. LUNGS: Clear, well-ventilated, symmetric, no rales, no wheezing, no rhonchi, no stridor, good breath sounds bilaterally. HEART: Regular rate, regular rhythm, no murmur, no gallops. VASCULAR: No peripheral edema. ABDOMEN: Soft, positive bowel sounds, nondistended, no guarding, nontender, no rebound, no masses no hepatomegaly, no splenomegaly, no Carl's sign, no hernias. RECTAL: Deferred. GENITAL: Deferred. NEUROLOGICAL: Normal speech, gross motor function intact, gross sensory function intact. MUSCULOSKELETAL: Neck nontender, full range of motion, back nontender, full range of motion. EXTREMITIES: Nontender, full range of motion. SKIN: Color pink, dry, no turgor, no rash, no lacerations, no abrasions, no contusions. LYMPHATICS: Deferred. Results Laboratory and Microbiology Lab and Micro Result Laboratory Tests Test 02/15/25 20:24 02/15/25 21:50 White Blood Count 8.9 K/uL (4.8-10.8) Red Blood Count 4.37 MIL/uL (4.00-5.50) Hemoglobin 10.9 g/dL (12.0-16.0) L Hematocrit 34.3 % (36-48) L Mean Corpuscular Volume 78.5 fL (79-99) L Mean Corpuscular Hemoglobin 24.9 pg (27.0-33.0) L Mean Corpuscular Hemoglobin Concent 31.8 g/dL (32.0-36.0) L Red Cell Distribution Width 14.3 % (11.0-15.5) Platelet Count 346 K/uL (130-400) Mean Platelet Volume 10.4 fL (7.5-10.5) Immature Granulocyte % (Auto) 0.3 % (0-1) Neutrophils (%) (Auto) 67.3 % (40.0-77.0) Lymphocytes (%) (Auto) 26.5 % (21.0-51.0) Monocytes (%) (Auto) 4.9 % (3.0-13.0) Eosinophils (%) (Auto) 0.7 % (0.0-8.0) Basophils (%) (Auto) 0.3 % (0.0-5.0) Neutrophils # (Auto) 6.0 K/uL (1.8-7.7) Lymphocytes # (Auto) 2.4 K/uL (1.0-4.8) Monocytes # (Auto) 0.4 K/uL (0.1-1.0) Eosinophils # (Auto) 0.06 K/uL (0.00-0.70) Basophils # (Auto) 0.03 K/uL (0.00-0.20) Absolute Immature Granulocyte (auto 0.03 K/uL (0-1) Nucleated Red Blood Cells 0.0 % (0.0-0.19) Red Blood Cell Morphology See comments Prothrombin Time 9.9 SEC (9.6-11.6) Prothromb Time International Ratio <= 0.93 (0.85-1.15) Activated Partial Thromboplast Time 27.2 SEC (26.3-35.5) Sodium Level 139 mmol/L (136-145) Potassium Level 3.8 mmol/L (3.5-5.1) Chloride Level 103 mmol/L (101-111) Carbon Dioxide Level 30 mmol/L (21-32) Blood Urea Nitrogen 13 mg/dL (7-18) Creatinine 0.7 mg/dL (0.5-1.0) Glomerular Filtration Rate Calc 112 mL/min (>90) Random Glucose 102 mg/dL (70-105) Total Calcium 8.6 mg/dL (8.5-10.1) Magnesium Level 2.00 mg/dL (1.80-2.40) Total Creatine Kinase 70 U/L (21-232) Troponin I High Sensitivity < 4 ng/L (4-50) L 5 ng/L (4-50) B-Type Natriuretic Peptide < 5 pg/mL (0-100) Labs Reviewed?: Yes EKG/XRAY/US/CT/MRI EKG Comment 02/15/2025 time 7:46 p.m. Ventricular rate 105 Sinus tachycardia [place] [address] wave elevation or depression X-RAY Comment IMAGING REPORT Signed PATIENT: DIANE BRAVO MR#: [id number] : 1985 SEX: F AGE: 39 LOCATION: [facility] ORDER 46 STATUS: [employer] REPORT#: [id number] SERVICE 44 REASON: cp ORDERING PHYSICIAN: MEGAN BARRIENTOS MD PROCEDURE: CXR1VW - CHEST 1VW Exam Type: CHEST 1VW Clinical Information: cp Comparison: None Findings: The lungs are clear of infiltrates. The heart is enlarged. Bony and soft tissue structures of the chest wall are unremarkable. IMPRESSION: Cardiomegaly. Clear lungs. DICTATED BY: ROQUE ECHOLS MD DATE: 02/15/252006 ELECTRONICALLY SIGNED BY: ROQUE ECHOLS MD DATE: 02/15/252009 MDM MDM: Differential diagnosis: Chest pain, chest wall pain, muscle strain, costochondritis Patient is a 39-year-old female coming in to be evaluated for left-sided chest pain. Patient states that the pain is exacerbated with movement and palpation of the area. On physical exam there is tenderness to the right pectoralis major muscle. Cardiac enzymes negative x2 EKG negative as well. Patient will be discharged in stable condition I did advised her appropriate follow up with PCP in 1-2 days for ongoing evaluation. ED Course Orders Procedure Category Date Status Time Cbc With Differential LAB 02/15/25 Complete 19:45 Prothrombin Time With LAB 02/15/25 Complete INR 19:45 B-Type Natriuretic LAB 02/15/25 Complete Peptide 19:45 Chest 1vw RAD 02/15/25 Resulted 19:45 12 Lead Ekg Tracing- EKG 02/15/25 Logged Technical 19:45 Aspirin 81mg Chew Tab PHA 02/15/25 Complete (Aspirin 81mg Chew 20:00 Nitroglycerin 0.4mg PHA 02/15/25 In Process Sl Tab (Nitrostat) 20:00 Magnesium LAB 02/15/25 Complete 19:45 Creatine Kinase, Total LAB 02/15/25 Complete 19:45 Troponin I High LAB 02/15/25 Complete Sensitivity 19:45 Urinalysis Profile LAB 02/15/25 Logged 19:45 Partial LAB 02/15/25 Complete Thromboplastin Time 19:45 Basic Metabolic Panel LAB 02/15/25 Complete 19:45 Troponin I High LAB 02/15/25 Complete Sensitivity 21:40 Ketorolac PHA 02/15/25 Verified Tromethamine 30mg/Ml 23:30 Current Medications Medications (Trade) Dose Ordered Sig/Justin Route PRN Reason Start Time Stop Time Status Last Admin Dose Admin Aspirin (Aspirin 81mg Chew Tab) 81 mg ONCE ONCE PO 02/15/25 20:00 02/15/25 20:01 DC 02/15/25 20:22 Nitroglycerin (Nitrostat) 0.4 mg Q5M PRN SL CHEST PAIN 02/15/25 20:00 02/15/25 20:22 Vital Signs Date Time Temp Pulse Resp B/P (MAP) Pulse Ox O2 Delivery O2 Flow Rate FiO2 02/15/25 19:58 98.2 92 18 138/80 99 Room Air* 0 21 02/15/25 19:54 98.4 95 18 138/80 100 Room Air 0 DX & DISP Disposition: Discharge Departure Impression: Primary Impression: Chest wall pain Additional Impression: Muscle strain Condition: Stable Additional Instructions: You have been reviewed in the emergency department at [facility] after presenting with chest pain. After considering your history, your risk factors, your EKG and your blood test troponins, have been found to be at very low risk less than (1 in 100) of having a major adverse cardiac event (like heart attack) in the near future. In the " low risk" group, the risks of doing further tests and treatment as the inpatient outweighs the benefits. In many patients in the low risk group for the test of any sort or unnecessary, however he should discuss this further with his general practitioner who will understand the medical and personal backgrounds better. Because we have never declared you" no risk" we would suggest. 1 returning for medical review if you have further episodes of chest pain/arm pain or other concerning symptoms like dizziness, collapse, palpitations or shortness of breath. 2. Following up with your local doctor who will consider the need for further testing and will also ensure that any modifiable risk factors you may have for heart disease are optimally managed. Patient will be discharged in stable condition at the moment discharge patient states , no chest pain Referrals: BRODIE SOTO MD (PCP) Time of Disposition: 23:30 MEGAN BARRIENTOS MD Feb 15, 2025 20:04
--- NOTE | 2025-02-15 20:10 | HMCIMG ---
Exam Type: CHEST 1VW Clinical Information: cp Comparison: None Findings: The lungs are clear of infiltrates. The heart is enlarged. Bony and soft tissue structures of the chest wall are unremarkable. IMPRESSION: Cardiomegaly. Clear lungs.
[2025-02-15] MEDS: ASPIRIN 81MG CHEW TAB PO ONE (20:22)
[2025-02-15] MEDS: NITROGLYCERIN 0.4 MG SL TAB SL PRN (20:22)
[2025-02-15 20:41] LABS: BASOPHILS # (AUTO) 0.03 K/uL (0.00-0.20); BASOPHILS % (AUTO) 0.3 % (0.0-5.0); EOSINOPHILS # (AUTO) 0.06 K/uL (0.00-0.70); EOSINOPHILS % (AUTO) 0.7 % (0.0-8.0); HEMATOCRIT 34.3 % (36-48); IMMATURE GRANULOCYTE ABSOLUTE 0.03 K/uL (0-1); LYMPHOCYTES # (AUTO) 2.4 K/uL (1.0-4.8); LYMPHOCYTES % (AUTO) 26.5 % (21.0-51.0); MEAN CORPUSCULAR HEMOGLOBIN 24.9 pg (27.0-33.0); MEAN CORPUSCULAR HGB CONC 31.8 g/dL (32.0-36.0); MEAN CORPUSCULAR VOLUME 78.5 fL (79-99); MONOCYTES # (AUTO) 0.4 K/uL (0.1-1.0); MONOCYTES % (AUTO) 4.9 % (3.0-13.0); NEUTROPHILS % (AUTO) 67.3 % (40.0-77.0); PLATELET COUNT (AUTO) 346 K/uL (130-400); RED BLOOD CELL COUNT(AUTO) 4.37 MIL/uL (4.00-5.50); RED CELL DISTRIBUTION WIDTH 14.3 % (11.0-15.5); WHITE BLOOD COUNT (AUTO) 8.9 K/uL (4.8-10.8)
[2025-02-15 20:50] LABS: INR <= 0.93 (0.85-1.15); PROTHROMBIN TIME 9.9 SEC (9.6-11.6)
[2025-02-15 20:51] LABS: PARTIAL THROMBOPLASTIN TIME 27.2 SEC (26.3-35.5)
[2025-02-15 21:08] LABS: B-TYPE NATRIURETIC PEPTIDE < 5 pg/mL (0-100)
[2025-02-15 21:22] LABS: CREATININE 0.7 mg/dL (0.5-1.0); POTASSIUM 3.8 mmol/L (3.5-5.1)
[2025-02-15] MEDS: ketOROlac 30MG VIAL (30MG/ML) IVP ONE (23:42)
[2025-02-15 23:45] VITALS: BP 124/75; PULSE 85; RESP 17; TEMP 98.2; O2SAT 99
--- NOTE | 2025-02-16 08:25 | EKG ---
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
== END 2025-02-15 23:54 | disposition home or self-care (01) ==
LOC: EDH 19:38
DX: S29.011A Strain of muscle and tendon of front wall of thorax, initial encounter (principal); R07.89 Other chest pain; Z79.899 Other long term (current) drug therapy; X58.XXXA Exposure to other specified factors, initial encounter; Y93.89 Activity, other specified; Y92.89 Other specified places as the place of occurrence of the external cause; Y99.8 Other external cause status
CPT/HCPCS: 99284; 96374; 71045; 82550; 83735; 84484 ×2; 80048; 83880; 85025; 85610; 85730; 36415; 93005; J1885

== ENCOUNTER 2025-08-12 15:27 | Emergency (ER) | payer BC ==
[~2025-08-12] VITALS: Ht 157.5 cm; Wt 99.8 kg
[~2025-08-12 15:27] MED LIST changes: +IBUP-1492 PO; -IBUP-2070 PO
--- NOTE | 2025-08-12 15:46 | ERN ---
General Chief Complaint: Abdominal Pain Stated Complaint: ABDOMINAL PAIN Time Seen by MD: 15:28 History of Present Illness Initial Comments 39-year-old female otherwise healthy presents for epigastric pain and early . Patient reports her last menstrual cycle was about two months ago. She took him out home test was positive. She reports for the last two or three days she has been having upper abdominal pain in the upper quadrants. It does radiate to the back at times. She feels nauseous. Pain is worse after eating. She does report a history of indigestion has a unsure if this is indigestion or something different. No fevers. No diarrhea. She denies any vaginal bleeding or discharge or lower pelvic cramping. She has stopped taking her antacids due to the . Allergies: Coded Allergies: No Known Drug Allergies (Unverified Allergy, Unknown, 04/28/22) Home Meds Active Scripts Ondansetron (Ondansetron Odt) 4 Mg Tab.rapdis, 1 TAB PO Q6HPRN PRN for nausea/vomiting for 4 Days, #16 TAB 0 Refills Prov:LACEY MEYER DO 08/12/25 Doxylamine/Pyridoxine HCl (Diclegis Dr 10-10 mg Tablet) 10 Mg-10 Mg Tablet.dr, 2 TAB PO HS for 24 Days, #48 TAB 0 Refills Prov:LACEY MEYER DO 08/12/25 Cyclobenzaprine HCl (Cyclobenzaprine HCl) 5 Mg Tablet, 5 MG PO DAILYDINNER for 5 Days, #5 TAB Prov:RADHA AZUL 03/12/23 Methylprednisolone (Medrol) 4 Mg Tab.ds.pk, 4 MG PO AD for 5 Days, #1 PACK Prov:RADHA AZUL 03/12/23 Ibuprofen (Ibuprofen) 600 Mg Tablet, 600 MG PO Q6H PRN for PAIN, #15 TAB Prov:RADHA AZUL 03/12/23 Past Medical History Past Medical History: No Pertinent History Past Surgical History: None, Unknown Social History Social History: Negative Female( History) : 7 Para: 4 Aborts: 1 ROS Dictation CONSTITUTIONAL: No chills, no fever, no weakness, no diaphoresis, no malaise. HEAD/FACE: No signs of trauma. EENT: No eye pain, no blurred vision, no tearing, no double vision, no ear pain, no ear discharge, no nose pain, no nasal congestion, no throat pain, no throat swelling, no mouth pain. RESPIRATORY: No cough, no orthopnea, no SOB, no stridor, no wheezing. CARDIOVASCULAR: No chest pain, no edema, no palpitations, no syncope. GASTROINTESTINAL/ABDOMINAL: Epigastric pain, nausea GENITOURINARY: No abnormal discharge, no dysuria, no frequent urination, no hematuria. No complaints of pain in the genitals. MUSCULOSKELETAL: No back pain, no gout, no joint pain, no joint swelling, no muscle pain, no muscle stiffness, no neck pain. INTEGUMENTARY: No change in color, no change in hair/nails, no dryness, no lesion, no lumps, no rash. NEUROLOGICAL/PSYCH: No anxiety, not depressed, no emotional problem, no headache, no numbness, no pre-existing deficit, no history of seizures, no tremors, no weakness. HEMATOLOGIC/LYMPHATIC: Not anemic, no history of blood clots, no apparent bleeding, no bruising, glands not swollen. All Systems Negative, Except as Noted. Physical Exam Physical Exam Dictation VITAL SIGNS: Reviewed. GENERAL APPEARANCE: Alert, oriented x3, no acute distress, obese. HEAD AND FACE: Non-traumatic. EYES: PERRL, pink conjunctivas, eyelid no trauma, anterior chamber clear. EARS: Pinnas intact and no signs of trauma or erythema. Ear canals clear and no discharge. TMs no erythema. NOSE: No discharge, no bleeding. OROPHARYNX: Mouth normal, teeth no caries, tongue pink. Pharynx clear, no erythema. Tonsils no exudates, no abscesses noted. Mucous membrane moist. NECK: Supple, non-tender, no thyromegaly, no masses, no JVD, no bruits. BREAST: Deferred. CHEST: No tenderness, no crepitus, no paradoxical movement, no retractions. LUNGS: Clear, well-ventilated, symmetric, no rales, no wheezing, no rhonchi, no stridor, good breath sounds bilaterally. HEART: Regular rate, regular rhythm, no murmur, no gallops. VASCULAR: No peripheral edema. ABDOMEN: Soft, positive bowel sounds, nondistended, no guarding, nontender, no rebound, no masses no hepatomegaly, no splenomegaly, no Carl's sign, no hernias. RECTAL: Deferred. GENITAL: Deferred. NEUROLOGICAL: Normal speech, gross motor function intact, gross sensory function intact. MUSCULOSKELETAL: Neck nontender, full range of motion, back nontender, full range of motion. EXTREMITIES: Nontender, full range of motion. SKIN: Color pink, dry, no turgor, no rash, no lacerations, no abrasions, no contusions. LYMPHATICS: Deferred. Results Laboratory and Microbiology Lab and Micro Result Laboratory Tests Test 08/12/25 15:43 08/12/25 17:10 White Blood Count 6.6 K/uL (4.8-10.8) Red Blood Count 4.62 MIL/uL (4.00-5.50) Hemoglobin 10.9 g/dL (12.0-16.0) L Hematocrit 33.8 % (36-48) L Mean Corpuscular Volume 73.2 fL (79-99) L Mean Corpuscular Hemoglobin 23.6 pg (27.0-33.0) L Mean Corpuscular Hemoglobin Concent 32.2 g/dL (32.0-36.0) Red Cell Distribution Width 17.2 % (11.0-15.5) H Platelet Count 317 K/uL (130-400) Mean Platelet Volume 10.8 fL (7.5-10.5) H Immature Granulocyte % (Auto) 0.3 % (0-1) Neutrophils (%) (Auto) 65.7 % (40.0-77.0) Lymphocytes (%) (Auto) 24.5 % (21.0-51.0) Monocytes (%) (Auto) 7.5 % (3.0-13.0) Eosinophils (%) (Auto) 1.7 % (0.0-8.0) Basophils (%) (Auto) 0.3 % (0.0-5.0) Neutrophils # (Auto) 4.3 K/uL (1.8-7.7) Lymphocytes # (Auto) 1.6 K/uL (1.0-4.8) Monocytes # (Auto) 0.5 K/uL (0.1-1.0) Eosinophils # (Auto) 0.11 K/uL (0.00-0.70) Basophils # (Auto) 0.02 K/uL (0.00-0.20) Absolute Immature Granulocyte (auto 0.02 K/uL (0-1) Nucleated Red Blood Cells 0.0 % (0.0-0.19) Red Blood Cell Morphology See comments Sodium Level 136 mmol/L (136-145) Potassium Level 3.3 mmol/L (3.5-5.1) L Chloride Level 102 mmol/L (101-111) Carbon Dioxide Level 27 mmol/L (21-32) Blood Urea Nitrogen 8 mg/dL (7-18) Creatinine 0.6 mg/dL (0.5-1.0) Glomerular Filtration Rate Calc 116 mL/min (>90) Random Glucose 96 mg/dL (70-105) Total Calcium 8.9 mg/dL (8.5-10.1) Total Bilirubin 0.3 mg/dL (0.2-1.0) Direct Bilirubin 0.1 mg/dL (0.0-0.3) Aspartate Amino Transf (AST/SGOT) 14 U/L (10-37) Alanine Aminotransferase (ALT/SGPT) 20 U/L (12-78) Alkaline Phosphatase 67 U/L (50-136) Total Protein 7.1 g/dL (6.0-8.3) Albumin 3.2 g/dL (3.5-5.0) L Lipase 21 U/L (16-77) Human Chorionic Gonadotropin, Quant 70518 mIU/mL (0-5) H Urine Color YELLOW (YELLOW) Urine Appearance CLOUDY (CLEAR) H Urine pH 7.5 (5.0-8.0) Urine Specific [place] 1.024 (1.001-1.031) Urine Protein 20 mg/dL (NEGATIVE) H Urine Glucose (UA) NEGATIVE mg/dL (NEGATIVE) Urine Ketones NEGATIVE mg/dL (NEGATIVE) Urine Occult Blood NEGATIVE (NEGATIVE) Urine Nitrate NEGATIVE (NEGATIVE) Urine Bilirubin NEGATIVE mg/dL (NEGATIVE) Urine Urobilinogen 12 mg/dL (0.2-1.0) H Urine Leukocyte Esterase 500 Leon/uL (NEGATIVE) H Urine RBC 6-10 /HPF (0-1) H Urine WBC 11-25 /HPF (0-1) H Urine Squamous Epithelial Cells FEW /HPF (0-2) Urine Bacteria FEW /HPF (None Seen) Urine Other Casts 1 /LPF (None Seen) MDM CC: Abdominal pain Historian: Patient Comorbidities: Obesity, appendectomy Limitations by social determinants of health: None Differential diagnosis: Blighted ovum, worsen, ectopic , biliary disease, gastritis, surgical pathology in the abdomen. Vital signs are stable Lab work is unremarkable independently interpreted by me CT avoided since the patient is Right upper quadrant ultrasound does show cholelithiasis. No signs of acute cholecystitis. Liver enzymes are all stable lipase is stable no white count. The ultrasound of the pelvis shows a gestational sac, date of five weeks 0 days, no fetus or heart tones. I re-evaluated the patient. She has soft nontender abdomen. She is in no pain. I have very low suspicion this is acute cholecystitis. A six desatting symptomatic cholelithiasis. Patient appears well. We will discharge with surgical follow up with PCP follow up. ED Course Orders Procedure Category Date Status Time Cbc With Differential LAB 08/12/25 Complete 15:32 Hcg,Quantitative LAB 08/12/25 Complete 15:32 Urinalysis Profile LAB 08/12/25 Complete 15:32 Us Abdominal Ruq\Ltd US 08/12/25 Resulted 15:32 Lactated Ringers PHA 08/12/25 Complete 1000ml (Lactated 16:00 Ondansetron 4mg Inj PHA 08/12/25 Complete (Zofran 4mg Inj) 16:00 Lipase LAB 08/12/25 Complete 15:32 Basic Metabolic Panel LAB 08/12/25 Complete 15:32 Hepatic Function Panel LAB 08/12/25 Complete 15:32 Us Ob <14 Weeks US 08/12/25 Resulted 15:32 Culture Urine EDDI 08/12/25 In Process 17:21 Current Medications Medications (Trade) Dose Ordered Sig/Justin Route PRN Reason Start Time Stop Time Status Last Admin Dose Admin Lactated Ringer's 1,000 ml @ 0 mls/hr ONCE ONCE IV 08/12/25 16:00 08/12/25 16:01 DC 08/12/25 17:15 Ondansetron HCl (zoFRAN 4MG INJ) 4 mg ONCE ONCE IVP 08/12/25 16:00 08/12/25 16:01 DC 08/12/25 17:15 Vital Signs Date Time Temp Pulse Resp B/P (MAP) Pulse Ox O2 Delivery O2 Flow Rate FiO2 08/12/25 17:05 98.1 96 16 116/64 96 Room Air* 0 21 08/12/25 15:28 98.1 96 16 116/64 96 Room Air DX & DISP Disposition: Discharge Departure Impression: Primary Impression: Cholelithiases Additional Impressions: Early stage of , Nausea Condition: Stable Scripts Ondansetron (Ondansetron Odt) 4 Mg Tab.rapdis 1 TAB PO Q6HPRN PRN for nausea/vomiting for 4 Days, #16 TAB 0 Refills Prov: LACEY MEYER DO 08/12/25 Doxylamine/Pyridoxine HCl (Diclegis Dr 10-10 mg Tablet) 10 Mg-10 Mg Tablet.dr 2 TAB PO HS for 24 Days, #48 TAB 0 Refills Prov: LACEY MEYER DO 08/12/25 Additional Instructions: You have [place] [address]. The ultrasound shows a gestational sac, dated five weeks and 0 days. As we discussed, you will need a repeat ultrasound in a week or two. The gallbladder ultrasound shows gallstones. This may be causing your sensation of bloating and nausea after eating. As we discussed, reduce fatty food intake. You can take 1000 mg of Tylenol for pain. I have prescribed a clean edges, which is an anti nausea medication safe in . It is first-line therapy for nausea in . Take as prescribed. Second-line nausea treatment is ondansetron dissolvable tabs. I have given you a prescription for this. I recommend that you make an appointment with the surgeon. You may need your gallbladder removed surgically some day. If you have high fevers, persistent pain despite pain medication, persistent vomiting, or any other concerning symptom, please return to the emergency dep artment. Referrals: BRODIE SOTO MD (PCP) LACEY MEYER DO Aug 12, 2025 15:46
[2025-08-12 15:54] LABS: IMMATURE GRANULOCYTE ABSOLUTE 0.02 K/uL (0-1); NUCLEATED RED BLOOD CELLS 0.0 % (0.0-0.19); PLATELET COUNT (AUTO) 317 K/uL (130-400); RED BLOOD CELL COUNT(AUTO) 4.62 MIL/uL (4.00-5.50); RED CELL DISTRIBUTION WIDTH 17.2 % (11.0-15.5); WHITE BLOOD COUNT (AUTO) 6.6 K/uL (4.8-10.8)
[2025-08-12 16:04] LABS: CREATININE 0.6 mg/dL (0.5-1.0); GLOMERULAR FILTR. RATE CALC 116.0 mL/min (>90); GLUCOSE,RANDOM 96.0 mg/dL (70-105); SODIUM SERUM 136.0 mmol/L (136-145); UREA NITROGEN, BLOOD 8.0 mg/dL (7-18)
[2025-08-12 16:29] LABS: ASPARTATE AMINOTRANSFERASE 14.0 U/L (10-37); HCG,QUANTITATIVE 13941.0 mIU/mL (0-5); TOTAL PROTEIN, SERUM 7.1 g/dL (6.0-8.3)
--- NOTE | 2025-08-12 16:35 | HMCIMG ---
US ABDOMINAL RUQ\E\LTD HISTORY: Adominal Pain 39-year-old female with abdominal pain COMPARISON: None FINDINGS: There is normal sonographic appearance of the liver. The liver (15.0 cm. There are no focal liver masses. The liver is not enlarged.There are multiple gallstones filling the gallbladder with a Prakash sign. The gallbladder wall thickness is 0.17 cm.. Common duct is normal. The common bile duct measures 0.3 cm. Right kidney is normal with no evidence of mass, hydronephrosis or stone.The right kidney measures 11 x 5 x 4 cm. The pancreas is not well seen. IMPRESSION: 1. Cholelithiasis with gallbladder filled with gallstones with Prakash sign
--- NOTE | 2025-08-12 16:49 | HMCIMG ---
TRANSABDOMINAL AND TRANSVAGINAL PELVIC ULTRASOUND; DATED 08/12/2025 3:43 PM MDT. CLINICAL INDICATION : Adominal Pain COMPARISON: None available FINDINGS: The study demonstrates there is a gestational sac with no pole or yolk sac. There is no cardiac activity. The gestational sac measuring 1.59 cm which is 5 weeks 0 day. The uterus is anteverted with normal shape. It measures 15 x 7 x 8 cm in its maximum length, anteroposterior and transverse dimensions. There is a fibroid measuring 6 x 5 x 6 cm. The myometrium is homogeneous and there is no evidence of focal or diffuse lesions. The cervix is closed. Both ovaries appear normal with normal flow on color and Spectral Doppler. The right ovary measures 4 x 3 x 4 cm. and the left ovary measures 3 x 1 x 2 cm cm. . There is normal color-flow Doppler. No adnexal masses. No free fluid or collections. Urinary bladder appears normal. IMPRESSION: 1. Single gestational sac with no pole or cardiac activity or yolk sac. I would recommend follow-up sonogram. 2. Cervix is closed.
[2025-08-12 17:05] VITALS: BP 116/64; PULSE 96; RESP 16; TEMP 98.1; O2SAT 96
[2025-08-12] MEDS: LACTATED RINGERS 1000ML 1,000 ML IV ONE (17:15)
[2025-08-12 17:19] LABS: APPEARANCE,URINE CLOUDY (CLEAR); GLUCOSE, URINE (UA) NEGATIVE (NEGATIVE); LEUKOCYTE ESTERASE ,URINE 500 Leu/uL (NEGATIVE); NITRATE,URINE NEGATIVE (NEGATIVE); OCCULT BLOOD,URINE NEGATIVE (NEGATIVE)
[2025-08-12 17:20] LABS: ADD UA MICROSCOPIC YES
[2025-08-12 17:23] LABS: OTHER CASTS, URINE 1 /LPF (None Seen); SQUAMOUS EPITHELIAL CELL,UR FEW /HPF (0-2)
[2025-08-12] MEDS ORDERED: DOXY1TAB3 PO (17:25)
[2025-08-12] MEDS ORDERED: ONDA-243 PO (17:25)
== END 2025-08-12 17:50 | disposition home or self-care (01) ==
LOC: EDH 15:27
DX: O26.891 Other specified pregnancy related conditions, first trimester (principal); K80.20 Calculus of gallbladder without cholecystitis without obstruction; E66.9 Obesity, unspecified; Z3A.00 Weeks of gestation of pregnancy not specified
CPT/HCPCS: 99285; 96374; 76705; 76801; 80076; 80048; 84702; 83690; 85025; 87086; 81001; 36415; J7120; J2405